=== PATIENT | male | born 1950 | race Asian ===

== ENCOUNTER 2022-10-02 19:10 | Emergency (ER) | payer MEDICARE, OTHER ==
[~2022-10-02] VITALS: Ht 167.6 cm; Wt 63.0 kg
--- NOTE | 2022-10-02 19:35 | NUR ---
[id number] FROM HOME C/O LAC TO R PALM FROM GLASS. +ASP. TDAP UNKNOWN. A/O X4. STABLE ON ROOM AIR. AMBULATORY. PRESSURE APPLIED TO LAC. SAFETY PRECAUTIONS IN PLACE.
[2022-10-02] MEDS ORDERED: TDAP [DIPH/PERTUSSIS/TET] 0.5 ML VIAL IM ONE ×2 (19:43→20:00)
[2022-10-02] MEDS ORDERED: ACETAMINOPHEN ES 500 MG TABLET ONE (19:44)
--- NOTE | 2022-10-02 19:45 | NUR ---
WEB UI DESIGNER AT PT'S BEDSIDE
--- NOTE | 2022-10-02 19:59 | NUR ---
EYEGLASS CUTTER AT BEDSIDE FOR LAC
[2022-10-02] MEDS ORDERED: ACETAMINOPHEN 325 MG TABLET PO ONE (20:00)
[2022-10-02] MEDS ORDERED: IBUP-1953 PO (20:35)
--- NOTE | 2022-10-02 20:57 | NUR ---
Patient discharged to home in stable condition. Written and verbal after care instructions given. Patient verbalizes understanding of instruction. PT ambulatory with a steady gait.
[2022-10-02] MEDS ORDERED: KETOROLAC TROMETHAMINE INJ 30 MG/ML VIAL IV ONE (21:00)
[2022-10-02 21:03] VITALS: BP 136/70
== END 2022-10-02 21:05 | disposition home or self-care (01) ==
LOC: ER 19:13
DX: S61.411A Laceration without foreign body of right hand, initial encounter (principal); I50.9 Heart failure, unspecified; Z88.8 Allergy status to other drugs, medicaments and biological substances; W25.XXXA Contact with sharp glass, initial encounter; Y93.89 Activity, other specified; Y92.89 Other specified places as the place of occurrence of the external cause; Y99.8 Other external cause status
CPT/HCPCS: 73130-TC; 90715

== ENCOUNTER 2022-10-09 12:23 | Emergency (ER) | payer MEDICARE, OTHER ==
[~2022-10-09] VITALS: Ht 165.1 cm; Wt 72.6 kg
[~2022-10-09 12:23] MED LIST: IBUP-1953 PO
[2022-10-09 12:41] VITALS: BP 102/51
--- NOTE | 2022-10-09 12:50 | NUR ---
PT SEEN BY FOR EVSAÚL
--- NOTE | 2022-10-09 13:21 | NUR ---
Patient discharged to home in stable condition. Written and verbal after care instructions given. Patient verbalizes understanding of instruction.
== END 2022-10-09 13:21 | disposition home or self-care (01) ==
LOC: ER 12:36
DX: S61.411D Laceration without foreign body of right hand, subsequent encounter (principal); I50.9 Heart failure, unspecified; Z79.899 Other long term (current) drug therapy; Z88.5 Allergy status to narcotic agent; X58.XXXD Exposure to other specified factors, subsequent encounter

== ENCOUNTER 2022-10-12 11:37 | Emergency (ER) | payer MEDICARE, OTHER ==
[~2022-10-12] VITALS: Ht 165.1 cm; Wt 63.0 kg
[2022-10-12 11:50] VITALS: BP 100/40
== END 2022-10-12 12:37 | disposition home or self-care (01) ==
LOC: ER 11:45
DX: S61.411D Laceration without foreign body of right hand, subsequent encounter (principal); I50.9 Heart failure, unspecified; Z88.5 Allergy status to narcotic agent; X58.XXXD Exposure to other specified factors, subsequent encounter